=== PATIENT | female | born 1980 | race Caucasian/White ===

== ENCOUNTER 2016-10-11 19:51 | Emergency (ER) | payer SELFPAY ==
[2016-10-11 20:33] VITALS: BP 119/77
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
--- NOTE | 2016-10-11 21:33 | RAD ---
INDICATION: Knee pain COMPARISON: None TECHNIQUE: AP, lateral, and oblique views were obtained. FINDINGS: There is minor patellofemoral osteoarthritis. No additional significant osteoarthritic changes seen. There is a small joint effusion. IMPRESSION: MILD PATELLOFEMORAL OSTEOARTHRITIS WITH SMALL JOINT EFFUSION.
[2016-10-11] MEDS ORDERED: Naproxen TAB* 250 MG PO ONE (21:54)
== END 2016-10-11 21:49 | disposition home or self-care (01) ==
LOC: UCCORT 19:51
DX: M25.562 Pain in left knee (principal); M25.462 Effusion, left knee; M17.12 Unilateral primary osteoarthritis, left knee
CPT/HCPCS: 99212; A9270-GY; G0463

== ENCOUNTER 2018-02-25 13:41 | Emergency (ER) | payer OTHER ==
[2018-02-25 14:28] VITALS: BP 116/55
--- NOTE | 2018-02-25 14:37 | UC ---
Ear Complaint HPI - HPI Summary HPI Summary: right ear aches itched it with a qtip last night and now feels more swollen - History of Current Complaint Chief Complaint: UCEar Stated Complaint: RT EAR ACHE Time Seen by Provider: 02/25/18 14:28 Hx Obtained From: Patient Hx Last Menstrual Period: present ?: No Onset/Duration: Sudden Onset, Lasting Days - 2, Still Present Pain Intensity: 5 Pain Scale Used: 0-10 Numeric Associated Signs/Symptoms: Positive: Hearing Loss, Foreign Body Sensation - Allergies/Home Medications Allergies/Adverse Reactions: Allergies Allergy/AdvReac Type Severity Reaction Status Date / Time No Known Allergies Allergy Verified 10/11/16 20:26 Home Medications: Home Medications Etonogestrel [Nexplanon] 02/25/18 [History] PMH/Surg Hx/FS Hx/Imm Hx Previously Healthy: Yes Other History Of: Negative For: HIV, Hepatitis B, Hepatitis C, Anticoagulant Therapy - Surgical History Surgical History: Yes Surgery Procedure, Year, and Place: adenoids as child - Family History Known Family History: Positive: None, Hypertension Negative: Cardiac Disease - Social History Occupation: Employed Full-time Lives: With Family Alcohol Use: None Alcohol Amount: 5 Substance Use Type: None Smoking Status (MU): Never Smoked Tobacco Review of Systems Constitutional: Negative Skin: Negative Eyes: Negative ENT: Negative, Ear Ache - right Respiratory: Negative Cardiovascular: Negative Gastrointestinal: Negative Genitourinary: Negative Motor: Negative Neurovascular: Negative Musculoskeletal: Negative Neurological: Negative Psychological: Negative Is Patient Immunocompromised?: No All Other Systems Reviewed And Are Negative: Yes Physical Exam Triage Information Reviewed: Yes Appearance: Well-Appearing, No Pain Distress, Well-Nourished Vital Signs: Initial Vital Signs Temp 98.7 F 02/25/18 14:25 Pulse 81 02/25/18 14:25 Resp 18 02/25/18 14:25 BP 116/55 02/25/18 14:25 Pulse Ox 100 02/25/18 14:25 Vital Signs Reviewed: Yes Eye Exam: Normal Eyes: Positive: Conjunctiva Clear ENT Exam: Normal ENT: Positive: Normal ENT inspection, Hearing grossly normal, Pharynx normal, Nasal congestion, Other - right grey tender and swollen. Negative: Trismus, Muffled voice, Hoarse voice, Dental tenderness Dental Exam: Normal Neck exam: Normal Neck: Positive: Supple, Nontender Respiratory Exam: Normal Respiratory: Positive: Chest non-tender, No respiratory distress, No accessory muscle use Cardiovascular Exam: Normal Cardiovascular: Positive: RRR, Pulses Normal, Brisk Capillary Refill Musculoskeletal Exam: Normal Musculoskeletal: Positive: Strength Intact, ROM Intact, No Edema Neurological Exam: Normal Neurological: Positive: Alert, Muscle Tone Normal Psychological Exam: Normal Skin Exam: Normal Ear Complaint Course/Dx - Course Course Of Treatment: ciprodex ear drops right ear bid for 7 days follow with pcp or return as needed - Differential Dx/Diagnosis Provider Diagnoses: right otitis externa Discharge - Sign-Out/Discharge Documenting (check all that apply): Patient Departure - Discharge Plan Condition: Stable Disposition: HOME Prescriptions: Ciproflox/Dexameth OTIC.SUSP* [Ciprodex OTIC.SUSP*] 4 drop .SEE ORDER BID 7 Days #1 btl Patient Education Materials: Otitis Externa (ED), How to Use Ear Drops (ED) Referrals: COURT Cesar [Medical Doctor] - If Needed - Billing Disposition and Condition Condition: STABLE Disposition: Home
== END 2018-02-25 14:58 | disposition home or self-care (01) ==
LOC: UCCORT 13:41
DX: H60.91 Unspecified otitis externa, right ear (principal)
CPT/HCPCS: 99212; G0463